=== PATIENT | female | born 1945 | race Caucasian/White ===

== ENCOUNTER 2020-09-14 13:55 | Outpatient (CLI) | payer MEDICARE | END 2020-09-14 13:56 | disposition home or self-care (01) | LOC: BICCT 13:55 | PROVIDERS: ATTEND Family Medicine | DX: I10 Essential (primary) hypertension (principal); I70.90 Unspecified atherosclerosis | CPT/HCPCS: 75571 ==

== ENCOUNTER 2022-04-24 12:31 | Observation (INO) | payer MEDICARE ==
[2022-04-24 13:24] LABS: Bacteria/HPF None Seen HPF (None Seen); Bilirubin Negative (Negative); Blood, Urine Negative (Negative); Clarity Clear (Clear); Glucose, Urine (Dipstick) Normal (Negative); Ketone, Urine Negative (Negative); Leukocyte Negative Leu/uL (Negative); Nitrite Negative (Negative); Protein, Urine (Dipstick) 30 mg/dL (Neg-Trace); RBC/HPF 0-3 HPF (0-3); Specific Gravity, Urine 1.019 (1.002-1.036); Squamous Epithelial 0-3 HPF (0-3); Urobilinogen Normal mg/dL (Less than 2); WBC/HPF 0-3 HPF (0-3); pH, Urine 5.5 (5.0-9.0)
[2022-04-24 13:34] LABS: #Basophils 0.1 thou/uL (0.0-0.2); #Eosinphils 0.1 thou/uL (0.0-0.7); #Lymphocytes 2.4 thou/uL (1.20-3.40); #Monocytes 0.7 thou/uL (0.11-0.59); #Neutrophils 6.7 thou/uL (1.40-6.50); %Basophils 0.7 % (0.0-1.0); %Eosinophils 1.5 % (0.0-10.0); %Lymphocytes 24.1 % (21.0-51.0); %Monocytes 7.3 % (0.0-10.0); %Neutrophils 66.4 % (42.0-75.0); Mean Corpuscular HGB CONC 33.5 g/dL (32.0-36.0); Mean Corpuscular Volume 89.4 fl (78.0-98.0); Mean Platelet Volume 9.1 fL (7.4-10.4); Platelet Count 178 10x3/uL (130-400); RBC Distribution Width 12.7 % (11.5-14.5); Red Blood Cell (RBC) Count 4.99 mill/uL (4.20-5.40); White Blood Cell (WBC) Count 10.1 10x3/uL (4.8-10.8)
[2022-04-24 13:55] LABS: ALT (SGPT) 21 U/L (8-55); AST (SGOT) 22 U/L (5-34); Albumin 4.5 g/dL (3.4-4.8); Alkaline Phosphatase 93 U/L (40-110); Anion Gap 16 mmol/L (10-20); BUN (Urea Nitrogen) 12 mg/dL (9.8-20.1); Calc. Creatinine Clearance 0 mL/min (70-130); Calcium 10.1 mg/dL (7.8-10.44); Carbon Dioxide 24 mmol/L (23-31); Chloride 106 mmol/L (98-107); Estimated GFR 55; Globulin 2.9 g/dL (2.4-3.5); Glucose 126 mg/dL (83-110); Potassium 3.3 mmol/L (3.5-5.1); Protein, Total 7.4 g/dL (5.8-8.1); Sodium 143 mmol/L (136-145)
[2022-04-24] MEDS ORDERED: Potassium Chloride 20 MEQ TAB ONE (16:21)
[2022-04-24] MEDS ORDERED: hydrALAZINE 20 MG/ML VIAL ONE (16:21)
[2022-04-24] MEDS ORDERED: HumaLOG 300 UNITS/3 ML VIAL SC PRN (16:39)
[2022-04-24] MEDS ORDERED: hydrALAZINE 20 MG/ML VIAL SLOW IVP PRN (16:39)
[2022-04-24] MEDS ORDERED: Dextrose 5% in Water 1,000 ML IV PRN (16:39)
[2022-04-24] MEDS ORDERED: Acetaminophen 325 MG TAB PO PRN (16:39)
[2022-04-24] MEDS ORDERED: Dextrose 50% Abboject 50 ML SYRINGE SLOW IVP PRN (16:39)
[2022-04-24] MEDS ORDERED: Guaifenesin DM 100-10/5 ML UDCUP PO PRN (16:39)
[2022-04-24] MEDS ORDERED: Ondansetron PF 4 MG/2 ML Vial IVP PRN (16:39)
[2022-04-24] MEDS ORDERED: Senokot S 8.6-50 MG TAB PO PRN (16:39)
[2022-04-24] MEDS ORDERED: Aspirin Chewable 81 MG TAB ONE (18:37)
[2022-04-24] MEDS: busPIRone HCl 10 MG TAB PO SCH (20:58)
[2022-04-24] MEDS: Famotidine 20 MG TAB PO SCH (20:58)
[2022-04-24] MEDS ORDERED: Rosuvastatin 20 MG TAB PO SCH (21:00)
[2022-04-24 22:42] VITALS: BMI 29.9
[2022-04-25 06:01] LABS: #Basophils 0.1 thou/uL (0.0-0.2); #Eosinphils 0.2 thou/uL (0.0-0.7); #Lymphocytes 1.9 thou/uL (1.20-3.40); #Monocytes 0.7 thou/uL (0.11-0.59); #Neutrophils 4.7 thou/uL (1.40-6.50); %Lymphocytes 25.1 % (21.0-51.0); %Neutrophils 61.9 % (42.0-75.0); Hemoglobin 13.9 g/dL (12.0-16.0); Mean Corpuscular Hemoglobin 30.3 pg (27.0-31.0); Mean Corpuscular Volume 89.1 fl (78.0-98.0); Mean Platelet Volume 9.4 fL (7.4-10.4); Platelet Count 143 10x3/uL (130-400); RBC Distribution Width 12.8 % (11.5-14.5); White Blood Cell (WBC) Count 7.6 10x3/uL (4.8-10.8)
[2022-04-25 06:43] LABS: ALT (SGPT) 19 U/L (8-55); AST (SGOT) 22 U/L (5-34); Albumin 3.9 g/dL (3.4-4.8); Alkaline Phosphatase 83 U/L (40-110); Anion Gap 17 mmol/L (10-20); BUN (Urea Nitrogen) 13 mg/dL (9.8-20.1); Bilirubin, Total 0.9 mg/dL (0.2-1.2); Calc. Creatinine Clearance 66 mL/min (70-130); Calcium 9.4 mg/dL (7.8-10.44); Carbon Dioxide 20 mmol/L (23-31); Cardiac Risk 3.9 (Less than 4.5); Chloride 107 mmol/L (98-107); Cholesterol 156 mg/dl (< 200 Desired); Estimated GFR 68; Globulin 2.9 g/dL (2.4-3.5); Glucose 125 mg/dL (83-110); HDL Cholesterol 40 mg/dL (>60 Neg Risk); Potassium 3.5 mmol/L (3.5-5.1); Protein, Total 6.8 g/dL (5.8-8.1); Sodium 140 mmol/L (136-145)
[2022-04-25 06:50] LABS: LDL Cholesterol, Calculated 90 mg/dL
[2022-04-25 07:04] LABS: Triglycerides 155 mg/dL (Less than 150)
[2022-04-25] MEDS: Famotidine 20 MG TAB PO SCH (08:05)
[2022-04-25] MEDS: busPIRone HCl 10 MG TAB PO SCH (08:05)
[2022-04-25] MEDS ORDERED: Aspirin 81 mg Enteric Coated Tablet PO SCH (09:00)
[2022-04-25] MEDS ORDERED: Nebivolol HCl 5 MG TAB PO SCH (09:00)
[2022-04-25] MEDS ORDERED: Alogliptin 25 MG TAB PO SCH (09:00)
[2022-04-25] MEDS ORDERED: Valsartan 80 MG TAB PO SCH (09:00)
[2022-04-25 12:08] VITALS: BP 193/106; TEMP 98.3
== END 2022-04-25 14:00 | disposition home or self-care (01) ==
LOC: ERS 12:31 → NEURO 16:28
PROVIDERS: ADMIT Internal Medicine; ATTEND Internal Medicine
DX: G45.9 Transient cerebral ischemic attack, unspecified (principal); I10 Essential (primary) hypertension; E11.9 Type 2 diabetes mellitus without complications; E78.5 Hyperlipidemia, unspecified; Z79.82 Long term (current) use of aspirin; Z79.84 Long term (current) use of oral hypoglycemic drugs; Z79.899 Other long term (current) drug therapy; Z20.822 Contact with and (suspected) exposure to COVID-19
CPT/HCPCS: 70450; 70551; 71045; 80053 ×2; 80061; 82962 ×2; 84484; 85025 ×2; 93005; 93306; 95712; 95819; 95957; 96372; 96374; 99285; G0378 ×3; U0003; U0005; 36415; 36416; 81003; 81015; J0360; J1650

== ENCOUNTER 2023-03-03 10:55 | Outpatient (CLI) | payer MEDICARE | END 2023-03-03 10:56 | disposition home or self-care (01) | LOC: BICMAMMO 10:55 | PROVIDERS: ATTEND Internal Medicine | DX: Z13.820 Encounter for screening for osteoporosis (principal); M85.851 Other specified disorders of bone density and structure, right thigh; M85.852 Other specified disorders of bone density and structure, left thigh; Z78.0 Asymptomatic menopausal state | CPT/HCPCS: 77080 ==

== ENCOUNTER 2023-06-15 | Outpatient (CLI) | payer MEDICARE | END 2023-06-15 12:50 | disposition home or self-care (01) | DX: R41.82 Altered mental status, unspecified (principal) ==